=== PATIENT | male | born 1960 | race American Indian/Alaskan Native ===

== ENCOUNTER 2020-02-03 19:57 | Emergency (ER) | payer MEDICAID ==
[2020-02-03] MEDS ORDERED: IBUPROFEN 800 MG TAB PO ONE (21:13)
[2020-02-03 23:01] VITALS: BP 137/73
[2020-02-03] MEDS ORDERED: fentaNYL 100 MCG/2 ML INJ IM ONE (23:02)
[2020-02-03] MEDS ORDERED: ONDANSETRON 4 MG/2 ML INJ IM ONE (23:02)
--- NOTE | 2020-02-03 23:02 | Emergency Department Report ---
HPI - General Chief Complaint: Extremity Injury, Lower Time Seen by Provider: 02/03/20 22:47 - HPI HPI: Room 42 The patient is a 59-year-old male present with a chief complaint of left hip pain. The patient states this evening while walking he slipped in a puddle of water causing him to fall into a split with his left leg going forward. Patient states he has had pain in his left hip since the fall. Patient states keeping his leg propped up helps with the pain. ED Past Medical Hx - Past Medical History Previous Medical History?: No - Surgical History Past Surgical History?: Yes Additional Surgical History: mouth, neck,eye - Family History Family history: no significant - Social History Smoking Status: Current Every Day Smoker (1 pack/day) Substance Use Type: None (Denies illicit drug use), Alcohol (Daily) - Medications Home Medications: Home Medications Medication Instructions Recorded Confirmed Last Taken Type Cyclobenzaprine [Flexeril] 10 mg PO TID PRN #10 tablet 02/04/20 Unknown Rx HYDROcodone/APAP 5-325 [[place] 1 - 2 each PO Q6HR PRN #14 tablet 02/04/20 Unknown Rx 5/325] Ibuprofen [Motrin 800 MG tab] 800 mg PO Q8HR PRN #20 tablet 02/04/20 Unknown Rx ED Review of Systems ROS: Stated complaint: PAIN IN LEG/SYNCOPE Other details as noted in HPI Constitutional: no symptoms reported Respiratory: no symptoms reported Endocrine: no symptoms reported Musculoskeletal: myalgia Physical Exam - Physical Exam Vital Signs: Vital Signs 02/03/20 21:07 Temperature 97.8 F Pulse Rate 89 Respiratory 18 Rate Blood Pressure 91/56 O2 Sat by Pulse 99 Oximetry Physical Exam: GENERAL: The patient is well-developed well-nourished []. [] HEENT: Normocephalic. Atraumatic. Extraocular motions are intact. Patient has moist mucous membranes. NECK: Supple. No meningitic signs are noted. There is no adenopathy noted. CHEST/LUNGS: Clear to auscultation. There is no respiratory distress noted. HEART/CARDIOVASCULAR: Regular. There is no tachycardia. There is no gallop rub or murmur. ABDOMEN: Abdomen is soft, nontender. Patient has normal bowel sounds. There is no abdominal distention. SKIN: There is no rash. There is no edema. There is no diaphoresis. NEURO: The patient is awake, alert, and oriented. The patient is cooperative. The patient has normal speech MUSCULOSKELETAL:There is pain in the left hip but no tenderness to palpation ED Course Vital Signs 02/03/20 21:07 Temperature 97.8 F Pulse Rate 89 Respiratory 18 Rate Blood Pressure 91/56 O2 Sat by Pulse 99 Oximetry ED Medical Decision Making - Radiology Data Radiology results: report reviewed (Left hip x-ray, left femur x-ray), image reviewed (Left hip x-ray, left femur x-ray) interpreted by me: Left hip x-ray-no acute fracture, no dislocation, no foreign body Left femur x-ray-no acute fracture, no dislocation, no foreign body [address] [address] XRay Report Signed Patient: KAYLAN LACKEY MR#: [id number] 3 : 1960 Acct:[id number] Age/Sex: 59 / M ADM Date: 02/03/20 Loc: ED Attending Dr: Ordering Physician: PHYLLIS MOLINA MD Date of Service: 02/03/20 Procedure(s): XR femur 2+V LT Accession Number(s): [id number] cc: PHYLLIS MOLINA MD Fluoro Time In Minutes: LEFT FEMUR 2 VIEWS INDICATION / CLINICAL INFORMATION: Pain after fall COMPARISON: None available. FINDINGS: BONES / JOINT(S): No acute fracture or subluxation. No significant arthritis. SOFT TISSUES: No significant abnormality. ADDITIONAL FINDINGS: None. Signer Name: Evan Chavez MD Signed: 02/04/2020 12:26 AM Workstation Name: [id number] Transcribed By: ES Dictated By: Evan Chavez MD Electronically Authenticated By: Evan Chavez MD Signed Date/Time: 02/04/2025 DD/ TD/TT: [address] [address] XRay Report Signed Patient: KAYLAN LACKEY MR#: [id number] 3 : 1960 Acc t:[id number] Age/Sex: 59 / M ADM Date: 02/03/20 Loc: ED Attending Dr: Ordering Physician: PHYLLIS MOLINA MD Date of Service: 02/03/20 Procedure(s): XR hip 2-3V LT Accession Number(s): [id number] cc: PHYLLIS MOLINA MD Fluoro Time In Minutes: LEFT HIP 2 VIEWS INDICATION / CLINICAL INFORMATION: Pain after fall COMPARISON: None available. FINDINGS: BONES / JOINT(S): No acute fracture or subluxation. No sig nificant arthritis. SOFT TISSUES: No significant abnormality. ADDITIONAL FINDINGS: None. Signer Name: Evan Chavez MD Signed: 02/03/2020 11:38 PM Workstation Name: [id number] Transcribed By: ES Dictated By: Evan Chavez MD Electronically Authenticated By: Evan Chavez MD Signed Date/Time: 02/03/202337 DD/ 37 TD/TT: - Differential Diagnosis Muscle tear, muscle strain, hip fracture, hip contusion Critical care attestation.: If time is entered above; I have spent that time in minutes in the direct care of this critically ill patient, excluding procedure time. ED Disposition Clinical Impression: Injury of left hip and thigh Disposition: DC-01 TO HOME OR SELFCARE Is pt being admited?: No Does the pt Need Aspirin: No Condition: Stable Instructions: Hamstring Injury (ED) Additional Instructions: Return to the emergency department should you develop worsening symptoms, inability to tolerate food or liquids, high fever or any other concerns Prescriptions: Cyclobenzaprine [Flexeril] 10 mg PO TID PRN #10 tablet PRN Reason: Muscle Spasm Ibuprofen [Motrin 800 MG tab] 800 mg PO Q8HR PRN #20 tablet PRN Reason: Pain, Moderate (4-6) HYDROcodone/APAP 5-325 [[place] 5/325] 1 - 2 each PO Q6HR PRN #14 tablet PRN Reason: Pain Referrals: ALEJANDRINA MCKENZIE MD [Primary Care Provider] - 3-5 Days LUPE WALKER MD [Staff Physician] - 3-5 Days (Dr. Walkre is an orthopedic surgeon. Please follow-up with him for further evaluation) Time of Disposition: 00:40
--- NOTE | 2020-02-03 23:43 | XRay Report ---
LEFT HIP 2 VIEWS INDICATION / CLINICAL INFORMATION: Pain after fall COMPARISON: None available. FINDINGS: BONES / JOINT(S): No acute fracture or subluxation. No significant arthritis. SOFT TISSUES: No significant abnormality. ADDITIONAL FINDINGS: None. Signer Name: Evan Chavez MD Signed: 02/03/2020 11:38 PM Workstation Name: [id number]
--- NOTE | 2020-02-04 00:31 | XRay Report ---
LEFT FEMUR 2 VIEWS INDICATION / CLINICAL INFORMATION: Pain after fall COMPARISON: None available. FINDINGS: BONES / JOINT(S): No acute fracture or subluxation. No significant arthritis. SOFT TISSUES: No significant abnormality. ADDITIONAL FINDINGS: None. Signer Name: Evan Chavez MD Signed: 02/04/2020 12:26 AM Workstation Name: [id number]
[2020-02-04] MEDS ORDERED: CYCLOBENZAPRINE 10 MG TAB PO ONE (00:55)
[2020-02-04] MEDS ORDERED: HYDROcodone/ACETAMINOPHEN 5-325 MG TAB PO ONE (00:55)
[2020-02-04] MEDS ORDERED: HYDROcodone/ACETAMINOPHEN 5-325 MG TAB ONE (00:58)
[2020-02-04] MEDS ORDERED: CYCLOBENZAPRINE 10 MG TAB ONE (00:58)
== END 2020-02-04 01:10 | disposition home or self-care (01) ==
LOC: ED 19:57
DX: S79.912A Unspecified injury of left hip, initial encounter (principal); F17.200 Nicotine dependence, unspecified, uncomplicated; Z98.890 Other specified postprocedural states; Z79.1 Long term (current) use of non-steroidal anti-inflammatories (NSAID); Z79.899 Other long term (current) drug therapy; W01.0XXA Fall on same level from slipping, tripping and stumbling without subsequent striking against object, initial encounter; Y93.89 Activity, other specified; Y92.89 Other specified places as the place of occurrence of the external cause; Y99.8 Other external cause status
CPT/HCPCS: 73502; 73552; 96372; 99283; J2405; J3010

== ENCOUNTER 2020-02-22 10:58 | Emergency (ER) | payer MEDICAID ==
[2020-02-22 11:04] VITALS: BP 151/91
--- NOTE | 2020-02-22 11:23 | Emergency Department Report ---
Chief Complaint: Extremity Injury, Lower Stated Complaint: LEFT LEG PAIN Time Seen by Provider: 02/22/20 11:16 - HPI History of Present Illness: 59-year-old male that nontoxic, well in appearance with no signs of distress presents to the ED for Dr. Walker referral. Patient was seen last month and was referred to Dr. Walker but has went to the wrong address. Patient denies any new injuries of trauma. Has left hip pain from fall. Patient denies any fever, chills, headache, nausea, vomiting, chest pain or shortness of breathe. denies any other symptoms or complaints. - Exam Vital Signs: Vital Signs 02/22/20 11:04 Temperature 98.1 F Pulse Rate 87 Respiratory 18 Rate Blood Pressure 151/91 [Right] O2 Sat by Pulse 100 Oximetry MSE screening note: Focused history and physical exam performed. Due to findings the following was ordered: ED Medical Decision Making - Medical Decision Making VSS. Patient is here just for a referral. Denies any complaints or any new injuries. Patient was instructed to Follow-up with a orthopedic doctor in 3-5 days or if symptoms worsen and continue return to emergency room as soon as possible. At time of discharge, the patient does not seem toxic or ill in appearance. No acute signs of distress noted. Patient agrees to discharge treatment plan of care. No further questions noted by the patient. ED Disposition for MSE Clinical Impression: Referral needed Disposition: Z-07 MED SCREENING EXAM-LEFT Is pt being admited?: No Does the pt Need Aspirin: No Condition: Stable Additional Instructions: Follow-up with a orthopedic doctor in 3-5 days or if symptoms worsen and continue return to the emergency department as soon as possible. Referrals: PRIMARY MD FAWN [Referring] - 3-5 Days LUPE WALKER MD [Staff Physician] - 3-5 Days
== END 2020-02-22 11:21 | disposition left against medical advice (07) ==
LOC: ED 10:58
DX: M79.605 Pain in left leg (principal); Z53.21 Procedure and treatment not carried out due to patient leaving prior to being seen by health care provider